=== PATIENT | male | born 1975 | race Caucasian/White ===

== ENCOUNTER → 2017-10-18 12:35 | Outpatient (CLI) | payer OTHER, SELFPAY ==
[2017-10-18 13:07] LABS: BUP Internal Control LINE = VALID (VALID); Buprenorphine Drug Screen Positive (<10 ng/mL)
== END ==
PROVIDERS: Family Provider Family Medicine; PCP Family Medicine; Visit Provider Family Medicine
DX: F19.11 Other psychoactive substance abuse, in remission (principal)
CPT/HCPCS: 80307

== ENCOUNTER → 2018-02-15 11:49 | Outpatient (CLI) | payer OTHER, SELFPAY ==
[2018-02-15 13:16] LABS: Amphetamine Urine VISTA NEGATIVE (<1000 ng/mL); Barbiturate Urine VISTA NEGATIVE (< 200 ng/mL); Benzodiazepine Urine VISTA NEGATIVE (< 200 ng/mL); Cocaine Urine VISTA NEGATIVE (< 300 ng/mL); Ecstacy Urine VISTA NEGATIVE (< 500 ng/mL); Methadone Urine VISTA NEGATIVE (< 300 ng/mL); PCP Urine VISTA NEGATIVE (< 25 ng/mL); THC Urine VISTA NEGATIVE (< 50 ng/mL); Vista UDS pH Range 5
== END ==
PROVIDERS: Family Provider Family Medicine; PCP Family Medicine; Visit Provider Family Medicine
DX: F19.11 Other psychoactive substance abuse, in remission (principal)
CPT/HCPCS: 80307

== ENCOUNTER → 2018-11-07 09:06 | Outpatient (CLI) | payer OTHER, SELFPAY ==
[2018-11-07 08:43] VITALS: BMI 29.0
[2018-11-07 12:34] LABS: Amphetamine Urine VISTA NEGATIVE (<1000 ng/mL); Barbiturate Urine VISTA NEGATIVE (< 200 ng/mL); Benzodiazepine Urine VISTA NEGATIVE (< 200 ng/mL); Cocaine Urine VISTA NEGATIVE (< 300 ng/mL); Ecstacy Urine VISTA NEGATIVE (< 500 ng/mL); Methadone Urine VISTA NEGATIVE (< 300 ng/mL); PCP Urine VISTA NEGATIVE (< 25 ng/mL); THC Urine VISTA NEGATIVE (< 50 ng/mL); Vista UDS pH Range 5
== END ==
PROVIDERS: Family Provider Family Medicine; PCP Family Medicine; Visit Provider Family Medicine
DX: Z87.898 Personal history of other specified conditions (principal)
CPT/HCPCS: 80307

== ENCOUNTER → 2019-09-10 09:30 | Outpatient (CLI) | payer OTHER, SELFPAY ==
[2019-09-10 09:07] VITALS: BMI 28.8
[2019-09-10 13:30] LABS: Amphetamine Urine VISTA NEGATIVE (<1000 ng/mL); Barbiturate Urine VISTA NEGATIVE (< 200 ng/mL); Benzodiazepine Urine VISTA NEGATIVE (< 200 ng/mL); Cocaine Urine VISTA NEGATIVE (< 300 ng/mL); Ecstacy Urine VISTA NEGATIVE (< 500 ng/mL); Methadone Urine VISTA NEGATIVE (< 300 ng/mL); PCP Urine VISTA NEGATIVE (< 25 ng/mL); THC Urine VISTA NEGATIVE (< 50 ng/mL); Vista UDS pH Range 6
== END ==
PROVIDERS: PCP Family Medicine; Referring Provider Family Medicine; Visit Provider Family Medicine
DX: F19.11 Other psychoactive substance abuse, in remission (principal)
CPT/HCPCS: 80307

== ENCOUNTER → 2022-01-18 | Outpatient (CLI) | payer OTHER, SELFPAY ==
[2022-01-18 15:44] LABS: Anion Gap 3 (5-15); BUN 24 mg/dL (7-18); BUN/Creat Ratio 21.6 RATIO (10-20); Calcium,Total 9.4 mg/dL (8.5-10.1); Chloride 105 mmol/L (98-107); Cholesterol 199 mg/dL (200); Creatinine, Serum 1.11 mg/dL (0.70-1.30); EST Glomerular Filtration Rate 75 mL/min (>60); Est Glom Filt Rate - Afr Amer 91 mL/min (>60); Glucose 93 mg/dL (74-106); High Density Lipoprotein 88 mg/dL; Potassium 4.7 mmol/L (3.5-5.1); Sodium Level 138 mmol/L (136-145); Triglycerides 43 mg/dL; Very Low Density Lipoprotein 9 mg/dL (5-40)
== END | disposition home or self-care (01) ==
LOC: BIMLAB 14:15
PROVIDERS: PCP Family Medicine; Referring Provider Family Medicine; Visit Provider Family Medicine
DX: I10 Essential (primary) hypertension (principal)
CPT/HCPCS: 36415; 80048; 80061

== ENCOUNTER → 2023-06-21 | Outpatient (CLI) | payer OTHER, SELFPAY ==
[2023-06-21 12:51] LABS: AST(SGOT) 55 U/L (15-37); Alanine Aminotransfer ALT/SGPT 168 U/L (16-61); Albumin, Serum 3.9 g/dL (3.2-5.0); Alkaline Phosphatase 52 U/L (45-117); Anion Gap 4 (5-15); BUN 22 mg/dL (7-18); BUN/Creat Ratio 21.8 RATIO (10-20); Calcium,Total 8.9 mg/dL (8.5-10.1); Chloride 104 mmol/L (98-107); Creatinine, Serum 1.01 mg/dL (0.70-1.30); EST Glomerular Filtration Rate 83 mL/min (>60); Est Glom Filt Rate - Afr Amer 101 mL/min (>60); Globulin 3.9 g/dL (2.2-4.2); Glucose 105 mg/dL (74-106); Potassium 3.8 mmol/L (3.5-5.1); Protein, Total 7.8 g/dL (6.4-8.2); Sodium Level 137 mmol/L (136-145)
== END | disposition home or self-care (01) ==
LOC: BIMLAB 09:00
PROVIDERS: PCP Family Medicine; Referring Provider Family Medicine; Visit Provider Family Medicine
DX: I10 Essential (primary) hypertension (principal)
CPT/HCPCS: 36415; 80053

== ENCOUNTER 2023-07-16 05:16 | Day surgery (SDC) | payer OTHER, SELFPAY ==
[2023-07-16] VITALS (7 sets, daily range): BP systolic 89–138; BP diastolic 62–80; PULSE 55–66; RESP 16–18; TEMP 36.6–37.1; O2SAT 96–98; BMI 32.2
[2023-07-16] MEDS: Lactated Ringers 1,000 ML 15 ML IV (05:59)
--- NOTE | 2023-07-16 06:25 | HP.PCM_ITS ---
HPI - General General Date of Admission: 07/16/23 Date of Service: 07/16/23 Chief Complaint: Screening colonoscopy HPI Narrative NAVEED SPRINGER, is a 48 M who presents today for screening colonoscopy. He has a past medical history of hypertension. He takes lisinopril 20 mg on daily basis. Overall he is in fairly good health. He denies any abdominal pain. He denies any nausea, vomiting or diarrhea. He denies any chest pain or shortness of breath. All other 16 review of systems are negative except as pertinent positive mentioned HPI. [facility] Medical History (Updated 07/12/23 @ 14:28 by Ronny Andre) Former smoker Hepatitis C antibody positive in blood History of alcohol abuse History of substance abuse Wears dentures Home Medications buprenorphine 8 mg-naloxone 2 mg sublingual tablet 1 tab sublingual BID 12/13/21 [History Last Taken Unknown] lisinopril 20 mg tablet 20 mg PO DAILY #90 tabs 01/10/23 [Rx Last Taken 07/16/23 04:00] buprenorphine 8 mg-naloxone 2 mg sublingual tablet See Rx Instructions sublingual .COMPLEX #120 tabs 06/21/23 [Rx Last Taken Unknown] Allergy/AdvReac Type Severity Reaction Status Date / Time No Known Allergies Allergy Verified 07/16/23 05:49 Family History Grandfather Myocardial infarction Father CVA (cerebral vascular accident) Hypertension Heart disease Surgical History (Updated 07/12/23 @ 14:28 by Ronny Andre) HISTORY OF RIGHT EYE SURGERY Social History Smoking Status: Former smoker how long ago did patient quit smokin alcohol intake: current alcohol intake frequency: 0-2 drinks per day Alcohol type: beer substance use type: does not use what type of physical activity do you participate in: weight training frequency: 1-2 times per week ROS Review of Systems ROS Unobtainable: other Constitutional Constitutional: Denies fatigue, fever(s), poor appetite, weight gain or weight loss ENT HEENT: Denies mouth lesions Cardiovascular Cardiovascular: Denies abdominal bloating, abdominal edema or abdominal pain Respiratory/Chest Respiratory/Chest: Denies change in mental status, change in phlegm color, chest congestion or chest tightness Gastrointestinal Gastrointestinal: Denies belching, bloating, change in bowel habits, change in stool character, chewing difficulty, coffee ground emesis, constipation, cramping, diarrhea, dyspepsia, dysphagia, early satiety, excessive flatus, fecal incontinence, heartburn, hematemesis, hematochezia, hemorrhoids, loose stools, melena, nausea, odynophagia, rectal bleeding, tenesmus, vomiting or weight changes Genitourinary Genitourinary: Denies abdominal discomfort, burning urination or itching Musculoskeletal Musculoskeletal: Reports as per HPI; Denies muscle weakness or myalgias Integumentary Integumentary: Denies jaundice Neurologic Neurologic: Denies lack of coordination or weakness Psychiatric Psychiatric: Denies confusion, depression, memory loss, mood swings, paranoia or suicidal ideation Endocrine Endocrinology: Denies systems reviewed and no addt'l complaints, except as documented Hematologic/Lymphatic Hematologic/Lymphatic: Denies anemia, easy bleeding, easy bruising or lymphadenopathy Allergic/Immunologic Allergic/Immunologic: Denies systems reviewed and no addt'l complaints, except as documented Vital Signs Vital Signs Vital Signs: 07/16/23 05:47 07/16/23 05:51 Temperature 97.9 F Temperature Source Temporal Pulse Rate 55 L Respiratory Rate 18 Respiratory Pattern Normal Blood Pressure 138/80 H Blood Pressure Mean 99 Blood Pressure Source Monitor Blood Pressure Position Semi-Fowlers Blood Pressure Location Left Arm Pulse Ox 97 Oxygen Delivery Method Room Air Weight Weight: 212 lb Body Mass Index (BMI) 32.2 Physical Exam Const alert General Appearance: cooperative Orientation / Consciousness: oriented to person HEENT hearing grossly normal bilaterally Head and Scalp: normal to inspection Face and Sinus: face symmetric Nose: external nose normal Mouth: oral and palatal mucosa normal Eyes conjunctivae normal General Eye: normal appearance of both eyes Neck full ROM General: normal visual inspection Lymph Lymphatic: no lymphadenopathy noted Chest inspection of chest normal and palpation of chest normal Chest: symmetrical chest wall rise Resp normal respiratory effort Effort and Inspection: able to speak in complete sentences Cardio regular rate GI non-distended Percussion: normal to percussion Rectal Exam: deferred Neuro Speech: speech normal Gait (Neuro): normal gait Assessment & Plan Assessment/Plan (1) Encounter for screening for malignant neoplasm of colon: PLAN: He was explained alternatives, risk, benefits including not withstanding bleeding, infection, sepsis, perforation, need for emergent surgery and . He will have an ASA of 2.
--- NOTE | 2023-07-16 06:55 | OP.COLON_ITS ---
Patient Name: Blade Alonso Procedure Date: 07/16/2023 6:14 AM Date of : 1975 Age: 48 Procedure: Colonoscopy Indications: Screening for colorectal malignant neoplasm Providers: Boo Burciaga DO Medicines: Monitored Anesthesia Care Patient Profile: This is a 48 year old male. Refer to note in patient chart for documentation of history and physical. Last Colonoscopy: none. The patient's first colonoscopy is today. Complications: No immediate complications. Procedure: Pre-Anesthesia Assessment: - Prior to the procedure, a History and Physical was performed, and patient medications and allergies were reviewed. The patient is competent. The risks and benefits of the procedure and the sedation options and risks were discussed with the patient. All questions were answered and informed consent was obtained. Patient identification and proposed procedure were verified by the physician. Mental Status Examination: normal. Respiratory Examination: clear to auscultation. Prophylactic Antibiotics: The patient does not require prophylactic antibiotics. Prior Anticoagulants: The patient has taken no anticoagulant or antiplatelet agents. ASA Grade Assessment: II - A patient with mild systemic disease. After reviewing the risks and benefits, the patient was deemed in satisfactory condition to undergo the procedure. The anesthesia plan was to use monitored anesthesia care (MAC). Immediately prior to administration of medications, the patient was re-assessed for adequacy to receive sedatives. The heart rate, respiratory rate, oxygen saturations, blood pressure, adequacy of pulmonary ventilation, and response to care were monitored throughout the procedure. The physical status of the patient was re-assessed after the procedure. After I obtained informed consent, the scope was passed under direct vision. Throughout the procedure, the patient's blood pressure, pulse, and oxygen saturations were monitored continuously. The Colonoscope was introduced through the anus and advanced to the cecum, identified by appendiceal orifice and ileocecal valve. The colonoscopy was performed without difficulty. The patient tolerated the procedure well. The quality of the bowel preparation was adequate. The ileocecal valve, appendiceal orifice, and rectum were photographed. Scope In: 6:38:38 AM Scope Withdrawal Time 0 hours 7 minutes 49 seconds Scope Out: 6:48:50 AM Total Procedure Duration Time 0 hours 10 minutes 12 seconds Findings: The entire examined colon appeared normal on direct and retroflexion views. Impression: - The entire examined colon is normal on direct and retroflexion views. - No specimens collected. Recommendation: - Discharge patient to home. - Resume previous diet. - Continue present medications. - Repeat colonoscopy in 10 years for screening purposes. Procedure Code(s): --- Professional --- G0121, Colorectal cancer screening; colonoscopy on individual not meeting criteria for high risk CPT copyright 2021 [employer]. All rights reserved. The codes documented in this report are preliminary and upon data coder operator review may be revised to meet current compliance requirements. Boo Burciaga DO 07/16/2023 6:54:27 AM This report has been signed electronically. Number of Addenda: 0 Note Initiated On: 07/16/2023 6:14 AM
--- NOTE | 2023-07-16 06:55 | OP.CCLET_ITS ---
07/16/2023 Oleg Hensley Re : Colonoscopy procedure for Blade Alonso Dear Dr. Hensley This procedure was performed on Sunday, July 16, 2023. My impressions and recommendations are as follows: Impressions : - The entire examined colon is normal on direct and retroflexion views. - No specimens collected. Recommendations : - Discharge patient to home. - Resume previous diet. - Continue present medications. - Repeat colonoscopy in 10 years for screening purposes. My findings are described in the full procedure note, which is enclosed. If I can be of further assistance, please feel free to contact me at . Sincerely, Boo Burciaga, 07/16/2023 6:54:27 AM This report has been signed electronically.
== END 2023-07-16 07:29 | disposition home or self-care (01) ==
LOC: EN 05:17 → AC 05:22
PROVIDERS: PCP Family Medicine; Referring Provider Family Medicine; Visit Provider Internal Medicine Gastroenterology
PROC: 0DJD8ZZ Inspection of Lower Intestinal Tract, Via Natural or Artificial Opening Endoscopic (ICD-10-PCS; CPT 45378; principal; 2023-07-16 06:25)
DX: Z12.11 Encounter for screening for malignant neoplasm of colon (principal); I10 Essential (primary) hypertension; Z87.891 Personal history of nicotine dependence; Z79.899 Other long term (current) drug therapy
CPT/HCPCS: 45378; J7120; J2405

== ENCOUNTER 2023-09-05 08:51 | Outpatient (CLI) | payer OTHER, SELFPAY ==
--- OUTSIDE RECORDS SUMMARY | 2023-09-05 09:34 | XMS RPT_ITS | CCD ---
Author Name Unknown Address [facility] [address] [place] [address] Organization [facility] Care Team Providers Care Tool Turret Lathe Set Up Operator Name Role Phone Blade Hensley Primary Care Provider Medications Current Medications Medication Drug Class(es) Dates Sig (Normalized) Sig (Original) ALPRAZolam 0.25 mg disintegrating oral tablet (1 source) Benzodiazepine Start: 09-30-2020 ALPRAZolam (NIRAVAM) dissolvable tablet 0.25 mg brimonidine tartrate 2 mg/ml ophthalmic solution (2 sources) alpha-Adrenergic Agonist Start: 09-22-2020 take 1 drop(s) into the eye(s) twice daily brimonidine (ALPHAGAN) 0.2 % ophthalmic solution Place 1 drop into the right eye 2 times daily 1 Bottle 3 09/22/2020 Active Buprenorphine HCl-Naloxone HCl (SUBOXONE SL) (3 sources) Buprenorphine HCl-Naloxone HCl (SUBOXONE SL) Place under the tongue 2 times daily 0 Active calcium chloride 0.0014 meq/ml / potassium chloride 0.004 meq/ml / sodium chloride 0.103 meq/ml / sodium lactate 0.028 meq/ml injectable solution (1 source) Start: 09-30-2020 lactated ringers infusion 1 ml diphenhydrAMINE hydrochloride 50 mg/ml cartridge (1 source) Histamine-1 Receptor Antagonist Start: 09-30-2020 End: 09-30-2020 diphenhydrAMINE (BENADRYL) injection 12.5 mg 2 ml fentaNYL 0.05 mg/ml injection (2 sources) Opioid Agonist Start: 09-30-2020 fentaNYL (SUBLIMAZE) injection 50 mcg Completed/Discontinued Medications Medication Drug Class(es) Dates Sig (Normalized) Sig (Original) acetaminophen 500 mg oral tablet (1 source) Start: 09-30-2020 End: 09-30-2020 acetaminophen (TYLENOL) tablet 1,000 mg Problems Active Problems Problem Classification Problem Date Documented Da te Episodic/Chronic Glaucoma (2 sources) Elevated right intraocular pressure; Translations: [Elevated IOP, right] Onset: 09-22-2020 09-22-2020 Other eye disorders (2 sources) Vitreous hemorrhage, right eye; Translations: [Vitreous hemorrhage of right eye] Onset: 09-21-2020 09-21-2020 Chronic Other eye disorders (2 sources) Hyphema of right eye; Translations: [Hyphema of right eye] Onset: 09-22-2020 09-22-2020 Retinal detachments; defects; vascular occlusion; and retinopathy (3 sources) Retinal hemorrhage, right eye; Translations: [Retinal hemorrhage of right eye] Onset: 11-30-2016 11-30-2016 Chronic Past or Other Problems Problem Classification Problem Date Documented Date Episodic/Chronic Inflammation; infection of eye (except that caused by tuberculosis or sexually transmitteddisease) (3 sources) Noninfectious secondary iridocyclitis; Translations: [Secondary iritis of right eye] Onset: 11-30-2016 Resolved: 12-15-2016 12-15-2016 Episodic Open wounds of head; neck; and trunk (1 source) Conjunctival laceration; Translations: [Laceration of right conjunctiva] Onset: 11-30-2016 11-30-2016 Episodic Other eye disorders (2 sources) Scleral laceration; Translations: [Scleral laceration of right eye] Onset: 11-30-2016 09-22-2020 Episodic Results Test Name Value Interpretation Reference Range Facil ity Vital Signs Date Time Vital Sign Value Performing Clinician Neetu cee 09-30-2020 13:45-0500 Pulse (Heart Rate) 73 /min Ede Grossman [employer] Work Phone: 09-30-2020 13:45-0500 Pulse Oximetry 94 % Ede Grossman [employer] Work Phone: 09-30-2020 13:45-0500 Respiratory Rate 18 /min Ede Grossman [employer] Work Phone: 09-30-2020 13:30-0500 BP Diastolic 71 mm[Hg] Ede Grossman [employer] Work Phone: 09-30-2020 13:30-0500 BP Systolic 104 mm[Hg] Ede BEVERLY Work Phone: 09-30-2020 13:03-0500 Body Temperature 97.81 [degF] Ede MONTILLAA Work Phone: 09-30-2020 09:29-0500 BMI (Body Mass Index) 30.41 kg/m2 Ede MONTILLAA Work Phone: 09-30-2020 09:29-0500 Body weight 90.72 kg Ede BEVERLY Work Phone: 09-30-2020 09:29-0500 Height 172.7 cm Ede MONTILLAA Work Phone: 09-28-2020 14:29-0500 BP Diastolic 100 mm[Hg] Ede MONTILLAA Work Phone: 09-28-2020 14:29-0500 BP Systolic 159 mm[Hg] Ede BEVERLY Work Phone: 09-28-2020 14:29-0500 Pulse (Heart Rate) 63 /min Ede BEVERLY Work Phone: 09-28-2020 14:29-0500 Pulse Oximetry 96 % Ede BEVERLY Work Phone: 09-28-2020 14:11-0500 BMI (Body Mass Index) 30.41 kg/m2 Ede BEVERLY Work Phone: 09-28-2020 14:11-0500 Body Temperature 97.5 [degF] Ede BEVERLY Work Phone: 09-28-2020 14:11-0500 Body weight 90.72 kg Ede BEVERLY Work Phone: 09-28-2020 14:11-0500 Height 172.7 cm Ede BEVERLY Work Phone: 09-28-2020 14:11-0500 Respiratory Rate 18 /min Ede BEVERLY Work Phone: 09-15-2020 19:15-0500 BP Diastolic 83 mm[Hg] Selene Vyas [employer] Work Phone: 09-15-2020 19:15-0500 BP Systolic 136 mm[Hg] Selene BEVERLY Work Phone: 09-15-2020 19:15-0500 Pulse (Heart Rate) 63 /min Selene MONTILLACover Work Phone: 09-15-2020 19:15-0500 Pulse Oximetry 94 % Selene Vyas [employer] Work Phone: 09-15-2020 19:15-0500 Respiratory Rate 13 /min Selene MONTILLACover Work Phone: 09-15-2020 19:00-0500 Body Temperature 97.3 [degF] Selene [facility]ONTILL[facility]over Work Phone: Encounters Encounter Date Encounter Type Care Provider Facility Start: 09-30-2020 End: 09-30-2020 Subsequent hospital visit by physician Ede Grossman Work Phone: [facility] General Surgery Procedures Date Procedure Procedure Detail Performing Clinician Start: 09-30-2020 OPERATIVE REPORT 3m Sca nning Plan of Treatment Date Care Activity Detail Author Start: 10-01-2020 End: 10-01-2020 Office Visit 10/01/2020 Office Visit Ophthalmology Luis Daniel Iqbal MD [address] [facility] [address] [place] [address] [facility] Ophthalmology Clnic Start: 09-30-2020 End: 09-30-2020 Appointment 09/30/2020 Appointment General Surgery Ede Grossman MD [address] [place] [address] [facility] General Surgery Start: 04-06-2020 Influenza vaccination Flu vaccine (#1) [employer] Work Phone: Start: 2013 Diabetes screen Diabetes screen [employer] Work Phone: Start: 2013 Lipid panel Lipid screen [employer] Work Phone: Start: 1992 DTaP/Tdap/Td vaccine (1 - Tdap) DTaP/Tdap/Td vaccine (1 - Tdap) [employer] Work Phone: Start: 1988 HIV screening HIV screen [employer] Work Phone: Start: 1975 Hepatitis C screening Hepatitis C screen [employer] Work Phone: End: 09-30-2020 Blood glucose - POCT Blood glucose - POCT Point of Care Testing STAT One Time for 1 Occurrences starting 09/30/2020 until 09/30/2020 [employer] Work Phone: Payers Date Payer Category Payer Unknown GENERIC MCO GENE LILI MCO [id number] 2016-Present [id number] Social History Date Type Detail Facility Start: 09-15-2020 End: 09-30-2020 Tobacco smoking status NHIS Former smoker [employer] Phone: Start: 09-15-2020 End: 09-30-2020 Tobacco use and exposure Never used [employer] Work Phone: Start: 09-15-2020 End: 09-30-2020 Alcohol intake Current drinker of alcohol (finding) [employer] Phone: Start: 12-04-2016 Alcohol Comment sometimes [employer] Work Phone: Sex Assigned At Not on file [employer] Work Phone: Exposure to SARS-CoV -2 (event) Not sure [employer] Phone: End: 09-16-2011 History of tobacco use Current smoker [employer] Phone: End: 09-16-2011 History of tobacco use Cigarette Smoker [employer] Phone: Start: 09-28-2020 End: 09-30-2020 Cigarettes smoked current (pack per day) - Reported [employer] Work Phone: Summary Purpose Family History No Family History Records FoundNo Family History Records Found Advance Directives No Advanced Directives Records FoundDocuments on File Type Date Recorded 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 ACP-Advance Directive ACP-Power of Head Of Business Development Latest Code Status on File Code Status Date Activated Date Inactivated Comments Full Code 09/15/2020 3:46 PM Latest Code Status on File Code Status Date Activated Date Inactivated Comments Full Code 09/15/2020 3:46 PM 09/16/2020 2:39 AM Latest Code Status on File Code Status Date Activated Date Inactivated Comments Full Code 09/30/2020 9:17 AM Full Code 09/15/2020 3:46 PM 09/16/2020 2:39 AM Discharge Instructions * Instructions* Luis Daniel Iqbal MD - 09/15/2020 - Keep eye shield on at all times over the right eye except for using drops. - Please use the Ofloxacin eye drops (given in the emergency room) 4 times a day in the right eye. You can use this 1-2 more times the remainder of tonight. - Please keep your head elevated at all times, including while sleeping. - Please only use Tylenol for pain, AVOID anything else including Advil, Motrin, Aleve, Ibuprofen, etc. - Please remain bed-bound, and only move to use the restroom or come to your appointment. - Tomorrow, come to [facility] at 8:30am for your follow-up appointment. There we can discuss using the Atropine (red top) drop, as well as starting your oral antibiotic pill. - If you have any severe unbearable pain or discomfort, please call [phone] (barker operator) and askto speak to the eye doctor application specialist. documented in this encounter* Instructions* Isa Collier RN - 09/28/2020 Please bring your [facility] Surgical Information folder on the day of surgery. Please connie the last dose taken (date and time ) on your Daily Medications List provided in your After Visit Summary. Please bring a photo ID and insurance information Do NOT take the following medications on the morning of surgery SUBOXONE TAKE eye drops as instructed by your physician the morning of surgery You may take your prescription pain medications. You may take Tylenol (Acetaminophen) if needed forpain. No Motrin, Ibuprofen, or Advil 24 hours prior to surgery, or longer if instructed by your surgeon. No Aleve or Naprosyn 3 days prior to surgery, or longer if instructed by your surgeon. Do not use any ASPIRIN containing products for 5 days prior to surgery Additional instructions: follow any instructions given to you by your physician Do not eat after midnight. Ok to drink clear liquids until 2 hours before your scheduled surgery Shower with an antibacterial soap before coming to the hospital If you have specific questions, please call your surgeon. * Attachments The following attachments cannot be sent through Care Everywhere. * Vitrectomy: Post-op (Albanian) documented in this encounter* Instructions* Ede Grossman MD - 09/30/2020 DO NOT: 1. Remove shield unless instructed to place eye drops 2. Bathe until seen by physician 3. Bend beneath waist or lift greater than 10 pounds 4. Take aspirin until seen by physician 5. Drive until directed by physician Position: Any except flat on back position post-op Ok to take tylenol as directed as needed Start home medications as directed by primary care physician Follow up in office next day as directed. documented in this encounter History of Present Illness * Tila Gallegos RN - 09/15/2020 7:35 PM EST at bedside D/C instructions reviewed with pt and and both verbalized understanding Atropine and ofloxacin eye drop bottles given to and to take to eye appt. Pt dressed IV out and readyto go home documented in this encounter* Sofie Barksdale RN - 09/30/2020 1:59 PM EST Family at bedside. * Sofie Barksdale RN - 09/30/2020 1:59 PM EST Patient removed all monitors from self, refusing to place back on. documented in this encounter Additional Source Comments (unrecognized sect ion and content) No Status Records FoundNo Status Records Found INFORMATION SOURCE (unrecogn ized section and content) DATE CREATED AUTHOR [facility]'S [facility] 07/12/2021 [facility] tem FOR RECORDS PERTAINING TO PATIENTS WHO ARE OR HAVE BEEN ENROLLED IN A CHEMICAL DEPENDENCY/SUBSTANCEABUSE PROGRAM, SOME INFORMATION MAY BE OMITTED. This clinical summary was aggregated from multiple sources. Caution should be exercised in using it in the provision of clinical care. This summary normalizes information from multiple sources, and as a consequence, information in this document may materially change the coding, format and clinical context of patient data. In addition, data may be omitted in some cases. CLINICAL DECISIONS SHOULD BE BASED ON THE PRIMARY CLINICAL RECORDS. [facility], [facility]. provides no warranty or guarantee of the accuracy or completeness of information in this document.
== END 2023-09-05 23:59 | disposition home or self-care (01) ==
PROVIDERS: PCP Family Medicine; Referring Provider Family Medicine; Visit Provider Family Medicine
DX: Z00.00 Encounter for general adult medical examination without abnormal findings (principal)
CPT/HCPCS: 80307

== ENCOUNTER → 2024-06-10 | Outpatient (CLI) | payer OTHER, SELFPAY ==
[2024-06-10 12:34] LABS: PSA,Total- Diagnostic 0.44 ng/mL (0.0-4.0)
== END | disposition home or self-care (01) ==
LOC: BIMLAB 09:54
PROVIDERS: PCP Family Medicine; Referring Provider Family Medicine; Visit Provider Family Medicine
DX: Z00.00 Encounter for general adult medical examination without abnormal findings (principal)
CPT/HCPCS: 36415; 84153

== ENCOUNTER → 2025-04-15 | Outpatient (CLI) | payer BC, SELFPAY ==
[2025-04-15 13:06] LABS: Anion Gap 11 (5-15); BUN 16 mg/dL (4-19); BUN/Creat Ratio 20.8 RATIO (10-20); Calcium,Total 9.4 mg/dL (7.6-11.0); Carbon Dioxide 24.8 mmol/L (21.0-32.0); Chloride 104 mmol/L (98-108); Glucose 125 mg/dL (70-99); Potassium 4.7 mmol/L (3.3-5.1)
== END | disposition home or self-care (01) ==
LOC: BIMLAB 09:08
PROVIDERS: PCP Family Medicine; Referring Provider Family Medicine; Visit Provider Family Medicine
DX: I10 Essential (primary) hypertension (principal)
CPT/HCPCS: 36415; 80048